=== PATIENT | male | born 1970 | race Caucasian/White ===

== ENCOUNTER 2020-04-24 18:59 | Inpatient (IN) ==
[2020-04-24] MEDS ORDERED: Aspirin 81 MG TAB.CHEW PO ONE (19:21)
[2020-04-24 19:56] LABS: Basophils # 0.1 K/mcL (0.0-0.2); Basophils % 0.5 %; Eosinophils # 0.2 K/mcL (0.0-0.6); Eosinophils % 1.7 %; Hematocrit 43.8 % (37.5-50.1); Hemoglobin 14.6 g/dL (12.9-16.9); Immature Granulocytes % 0.3 % (0-4); Lymphocytes # 4.6 K/mcL (0.6-4.6); Mean Corpuscular HGB Conc 33.3 g/dL (31.6-35.5); Mean Corpuscular Hemoglobin 28.3 pg (28.0-33.3); Mean Corpuscular Volume 84.9 fL (83.0-100.0); Mean Platelet Volume 9.6 fL (9.4-12.4); Monocytes # 0.4 K/mcL (0.0-1.3); Monocytes % 3.7 %; Platelet Count 238 K/mcL (140-400); Red Blood Count 5.16 M/mcL (4.19-5.50); Red Cell Distribution Width 13.5 % (11.5-14.5); Segmented Neutrophils % 48.8 %; White Blood Count 10.2 K/mcL (4.3-11.1)
[2020-04-24 20:03] LABS: Bilirubin,Urine Negative (Negative); Blood,Urine Trace (Negative); Clarity,Urine Clear (Clear); Color,Urine Light-Yellow (Yellow); Glucose,Urine (UA) Normal (Normal); Ketones,Urine Negative (Negative); Leukocyte Esterase,Urine Negative (Negative); Nitrite,Urine Negative (Negative); Protein,Urine Trace mg/dL (Neg-Trace); Specific Gravity,Urine 1.024 (1.010-1.025); Urobilinogen,Urine Normal (Normal); WBC,Urine 0-3 per hpf (0-3)
[2020-04-24 20:04] LABS: Mucus,Urine Few per lpf (None-Few); Squamous Epithelial Cell,Urine Few per hpf (None-Few)
[2020-04-24 20:17] LABS: BUN/Creatinine Ratio 18 (6-26); Blood Urea Nitrogen 18 mg/dL (6-20); Calcium 9.1 mg/dL (8.6-10.3); Carbon Dioxide 25 mEq/L (23-29); Chloride 107 mEq/L (98-107); Glucose 148 mg/dL (70-105); Osmolality,Calculated 297 (280-300); Potassium 3.9 mEq/L (3.5-5.1); Sodium 141 mEq/L (136-145); eGFR For African Americans > 60 (> 60); eGFR For Non-African Americans > 60 (> 60)
[2020-04-24 20:18] LABS: Troponin I < 0.03 ng/mL (< 0.04)
[2020-04-24] MEDS ORDERED: Tetracaine 0.5% OPTH 80 DROP/4 ML BOTTLE RIGHT EYE ONE (20:36)
[2020-04-24] MEDS ORDERED: Perflutren Lipid Microsphere 1.3 ML in 0.9 % Sodium Chloride 8.7 ML IVP PRN (21:36)
[2020-04-24] MEDS ORDERED: Isovue-370 500 ML BOTTLE IVP ONE (21:38)
[2020-04-24] MEDS ORDERED: Naloxone 0.4 MG/ML INJ IVP PRN (21:39)
[2020-04-24] MEDS ORDERED: *HR* Dextrose 50 % in Water (Vial) 50 ML VIAL IVP PRN (21:50)
[2020-04-24] MEDS ORDERED: Dextrose Gel 15 GM/37.5 ML TUBE PO PRN ×2 (21:50)
[2020-04-24] MEDS ORDERED: D5% in Water 1,000 ML IVC PRN (21:50)
[2020-04-24] MEDS: Heparin 25,000UNIT/250ML 1/2NS 25,000 UNIT/250 ML IV.SOLN IVC SCH (23:59)
[2020-04-25] MEDS ORDERED: *HR* Heparin 5,000 UNIT/ML VIAL IVP ONE (00:11)
[2020-04-25] MEDS ORDERED: *HR* Heparin 5,000 UNIT/ML VIAL IVP PRN ×2 (00:11)
[2020-04-25 00:18] LABS: INR 1.1; Prothrombin Time 12.2 Seconds (9.4-12.1)
[2020-04-25 00:19] LABS: Hematocrit 44.9 % (37.5-50.1); Hemoglobin 14.2 g/dL (12.9-16.9); Heparin anti-factor XA UFH 0.04 IU/mL (0.30-0.70); Mean Corpuscular HGB Conc 31.6 g/dL (31.6-35.5); Mean Corpuscular Hemoglobin 27.1 pg (28.0-33.3); Mean Corpuscular Volume 85.7 fL (83.0-100.0); Mean Platelet Volume 10.2 fL (9.4-12.4); Platelet Count 231 K/mcL (140-400); Red Blood Count 5.24 M/mcL (4.19-5.50); Red Cell Distribution Width 13.5 % (11.5-14.5); White Blood Count 10.7 K/mcL (4.3-11.1)
[2020-04-25] MEDS ORDERED: *HR* Heparin 5,000 UNIT/ML VIAL SQ SCH (06:00)
[2020-04-25 06:19] LABS: Basophils # 0.1 K/mcL (0.0-0.2); Basophils % 0.5 %; Eosinophils # 0.2 K/mcL (0.0-0.6); Hematocrit 44.9 % (37.5-50.1); Hemoglobin 14.6 g/dL (12.9-16.9); Immature Granulocytes % 0.4 % (0-4); Lymphocytes # 4.6 K/mcL (0.6-4.6); Lymphocytes % 49.9 %; Mean Corpuscular HGB Conc 32.5 g/dL (31.6-35.5); Mean Corpuscular Hemoglobin 27.5 pg (28.0-33.3); Mean Corpuscular Volume 84.7 fL (83.0-100.0); Mean Platelet Volume 9.8 fL (9.4-12.4); Monocytes # 0.4 K/mcL (0.0-1.3); Monocytes % 4.1 %; Platelet Count 209 K/mcL (140-400); Red Cell Distribution Width 13.5 % (11.5-14.5); Segmented Neutrophils % 43.1 %; White Blood Count 9.3 K/mcL (4.3-11.1)
[2020-04-25 06:37] LABS: BUN/Creatinine Ratio 19 (6-26); Blood Urea Nitrogen 16 mg/dL (6-20); Calcium 8.6 mg/dL (8.6-10.3); Carbon Dioxide 25 mEq/L (23-29); Chloride 109 mEq/L (98-107); Chol/HDL Ratio 6.9 (0-4.9); Cholesterol 222 mg/dL (< 200); Glucose 105 mg/dL (70-105); HDL Cholesterol 32 mg/dL (40-59); LDL Cholesterol,Calculated 145 mg/dL (< 100); Osmolality,Calculated 292 (280-300); Potassium 3.9 mEq/L (3.5-5.1); Sodium 140 mEq/L (136-145); Triglycerides 223 mg/dL (< 150); eGFR For African Americans > 60 (> 60); eGFR For Non-African Americans > 60 (> 60)
[2020-04-25] MEDS ORDERED: Insulin LISPRO 300 UNITS/3 ML VIAL SUBQ SCH ×2 (07:30→21:00)
[2020-04-25 08:38] LABS: Estimated Average Glucose 126 mg/dl
[2020-04-25] MEDS ORDERED: Aspirin 81 MG TAB.CHEW PO SCH (09:00)
[2020-04-25] MEDS: Nicotine 21 MG PATCH.TD24 TD SCH (12:28)
[2020-04-25] MEDS: Heparin 25,000UNIT/250ML 1/2NS 25,000 UNIT/250 ML IV.SOLN IVC SCH (17:03)
[2020-04-26 00:51] LABS: BUN/Creatinine Ratio 18 (6-26); Blood Urea Nitrogen 16 mg/dL (6-20); Calcium 8.8 mg/dL (8.6-10.3); Carbon Dioxide 24 mEq/L (23-29); Chloride 108 mEq/L (98-107); Glucose 119 mg/dL (70-105); Osmolality,Calculated 292 (280-300); Potassium 3.7 mEq/L (3.5-5.1); Sodium 140 mEq/L (136-145); eGFR For African Americans > 60 (> 60); eGFR For Non-African Americans > 60 (> 60)
[2020-04-26 02:10] LABS: Basophils # 0.1 K/mcL (0.0-0.2); Basophils % 0.6 %; Eosinophils # 0.2 K/mcL (0.0-0.6); Eosinophils % 2.5 %; Hematocrit 44.4 % (37.5-50.1); Hemoglobin 14.3 g/dL (12.9-16.9); Immature Granulocytes % 0.2 % (0-4); Lymphocytes # 4.8 K/mcL (0.6-4.6); Lymphocytes % 54.1 %; Mean Corpuscular HGB Conc 32.2 g/dL (31.6-35.5); Mean Corpuscular Hemoglobin 27.2 pg (28.0-33.3); Mean Platelet Volume 9.9 fL (9.4-12.4); Monocytes # 0.4 K/mcL (0.0-1.3); Monocytes % 4.7 %; Neutrophils # 3.4 K/mcL (1.6-8.9); Platelet Count 201 K/mcL (140-400); Red Blood Count 5.26 M/mcL (4.19-5.50); Red Cell Distribution Width 13.6 % (11.5-14.5); Segmented Neutrophils % 37.9 %
[2020-04-26 02:14] LABS: Mean Corpuscular Volume 84.4 fL (83.0-100.0)
[2020-04-26] MEDS ORDERED: *HR* Vasopressin 20 UNIT/ML VIAL ONE (06:46)
[2020-04-26] MEDS ORDERED: *HR* Norepinephrine 4 MG/4 ML VIAL IVC ONE (06:46)
[2020-04-26] MEDS ORDERED: Heparin 1,000 UNITS/500 mL 500 ML ONE ×2 (06:48→07:17)
[2020-04-26] MEDS ORDERED: Ondansetron 4 MG/2 ML VIAL ONE (06:58)
[2020-04-26] MEDS ORDERED: *HR* Propofol 200 MG/20 ML VIAL IVP ONE ×2 (06:58→11:01)
[2020-04-26] MEDS ORDERED: *HR* Rocuronium Bromide 50 MG/5 ML VIAL ONE ×2 (06:58→09:54)
[2020-04-26] MEDS ORDERED: *HR* Midazolam HCl 2 MG/2 ML VIAL ONE (06:58)
[2020-04-26] MEDS ORDERED: *HR* FentaNYL (PF) 100 MCG/2 ML VIAL ONE ×2 (06:58→10:59)
[2020-04-26] MEDS ORDERED: Lidocaine -MPF 2% 2 ML VIAL ONE (06:58)
[2020-04-26] MEDS ORDERED: *HR* PHENYLEPHRINE 1,000 MCG/10 ML SYRINGE IVP ONE (07:10)
[2020-04-26] MEDS ORDERED: Dexamethasone 4 MG/ML VIAL ONE (07:10)
[2020-04-26] MEDS ORDERED: Lidocaine -MPF 4% 5 ML AMPUL ONE (07:12)
[2020-04-26] MEDS ORDERED: Protamine Sulfate 50 MG/5 ML VIAL IVP ONE (07:16)
[2020-04-26] MEDS ORDERED: Lidocaine 1% 20 ML MDV ONE (07:17)
[2020-04-26] MEDS ORDERED: Bupivacaine-MPF 0.25% 10 ML VIAL ONE (07:17)
[2020-04-26] MEDS ORDERED: ceFAZolin 2,000 MG in Water for inj. (sterile) 20 ML IVP ONE (07:27)
[2020-04-26] MEDS ORDERED: *HR* Heparin 5,000 UNIT/ML VIAL ONE ×3 (07:31→10:07)
[2020-04-26] MEDS ORDERED: Vancomycin 1,000 MG, Sodium Chloride IRRigation 1,000 ML IR ONE (07:45)
[2020-04-26] MEDS ORDERED: Vancomycin 1,500 MG/265 ML IV.SOLN IVPB ONE ×2 (08:00→20:00)
[2020-04-26] MEDS ORDERED: *HR* OxyCODONE/APAP 5/325 TABLET PO PRN (08:00)
[2020-04-26] MEDS ORDERED: Ondansetron 4 MG/2 ML VIAL IVP PRN ×2 (08:00→12:55)
[2020-04-26] MEDS ORDERED: *HR* HYDROmorphone PF 0.5 MG/0.5 ML SYRINGE IVP PRN (08:00)
[2020-04-26] MEDS ORDERED: Ringers Solution, Lactated 1,000 ML IVC SCH (08:00)
[2020-04-26] MEDS: Nicotine 21 MG PATCH.TD24 TD SCH ×2 (09:00→15:32)
[2020-04-26] MEDS ORDERED: NiCARdipine 2.5 MG/10 ML Syringe IVPB ONE (09:21)
[2020-04-26] MEDS ORDERED: *HR* OxyCODONE Immed Rel 5 MG TABLET PO PRN (12:55)
[2020-04-26] MEDS ORDERED: *HR* Dextrose 50 % in Water (Vial) 50 ML VIAL IVP PRN (12:55)
[2020-04-26] MEDS ORDERED: *HR* Labetalol 20 MG/4 ML SYRINGE IVP PRN (12:55)
[2020-04-26] MEDS ORDERED: Naloxone 0.4 MG/ML INJ IVP PRN (12:55)
[2020-04-26] MEDS ORDERED: Acetaminophen 325 MG TABLET PO PRN (12:55)
[2020-04-26] MEDS ORDERED: D5% in Water 1,000 ML IVC PRN (12:55)
[2020-04-26] MEDS ORDERED: Dextrose Gel 15 GM/37.5 ML TUBE PO PRN ×2 (12:55)
[2020-04-26] MEDS ORDERED: 0.9 % Sodium Chloride 1,000 ML IVC SCH (12:55)
[2020-04-26] MEDS: *HR* Metoprolol 5 MG/5 ML VIAL IVP SCH ×2 (14:39→19:56)
[2020-04-26] MEDS: CeFAZolin 2 GM/120 ML BAG IVPB SCH (15:33)
[2020-04-26] MEDS: *HR* HYDROcodone/Acet 5/325 mg TABLET PO PRN (17:43)
[2020-04-27] MEDS: *HR* Metoprolol 5 MG/5 ML VIAL IVP SCH ×2 (00:09→06:27)
[2020-04-27] MEDS: *HR* HYDROcodone/Acet 5/325 mg TABLET PO PRN ×2 (00:09→06:27)
[2020-04-27] MEDS: CeFAZolin 2 GM/120 ML BAG IVPB SCH (00:09)
[2020-04-27 01:29] LABS: Basophils % 0.1 %; Hematocrit 41.8 % (37.5-50.1); Hemoglobin 13.5 g/dL (12.9-16.9); Immature Granulocytes % 0.4 % (0-4); Lymphocytes # 1.4 K/mcL (0.6-4.6); Lymphocytes % 12.4 %; Mean Corpuscular HGB Conc 32.3 g/dL (31.6-35.5); Mean Corpuscular Hemoglobin 27.7 pg (28.0-33.3); Mean Corpuscular Volume 85.7 fL (83.0-100.0); Mean Platelet Volume 10.3 fL (9.4-12.4); Monocytes # 0.4 K/mcL (0.0-1.3); Monocytes % 3.3 %; Neutrophils # 9.4 K/mcL (1.6-8.9); Platelet Count 219 K/mcL (140-400); Red Blood Count 4.88 M/mcL (4.19-5.50); Red Cell Distribution Width 13.6 % (11.5-14.5); Segmented Neutrophils % 83.8 %; White Blood Count 11.2 K/mcL (4.3-11.1)
[2020-04-27 01:46] LABS: BUN/Creatinine Ratio 16 (6-26); Blood Urea Nitrogen 13 mg/dL (6-20); Calcium 8.5 mg/dL (8.6-10.3); Carbon Dioxide 22 mEq/L (23-29); Chloride 111 mEq/L (98-107); Glucose 133 mg/dL (70-105); Osmolality,Calculated 294 (280-300); Potassium 3.8 mEq/L (3.5-5.1); Sodium 141 mEq/L (136-145); eGFR For African Americans > 60 (> 60); eGFR For Non-African Americans > 60 (> 60)
[2020-04-27] MEDS ORDERED: *HR* Heparin 5,000 UNIT/ML VIAL SQ SCH (06:00)
[2020-04-27 07:04] VITALS: BP 144/86
[2020-04-27] MEDS: Nicotine 21 MG PATCH.TD24 TD SCH (07:40)
[2020-04-27] MEDS ORDERED: Nicotine 21 MG PATCH.TD24 TD SCH (09:00)
[2020-04-27] MEDS ORDERED: Aspirin 81 MG TAB.CHEW PO SCH (09:00)
== END 2020-04-27 08:45 | disposition home or self-care (01) | DRG 24 ==
LOC: 2NENU 18:59 → EMEROOARM 18:59 → SUATTDRO 21:17 → 2NENU 22:15 → 2NNU 04-26 12:28
PROVIDERS: ADMIT Internal Medicine; ATTEND Internal Medicine